=== PATIENT | female | born 1945 | race Caucasian/White ===

== ENCOUNTER → 2016-10-05 | Outpatient (CLI) | payer OTHER, MEDICARE ==
[2016-10-05 07:37] LABS: HEMATOCRIT 44.4 % (37.0-47.0); HEMOGLOBIN 15.5 g/dL (12.0-16.0); MEAN CORPUSCULAR HEMOGLOBIN 31.7 PG (27-31); MEAN CORPUSCULAR HGB CONC 34.9 g/dL (33-37); MEAN CORPUSCULAR VOLUME 90.8 FL (81-99); MEAN PLATELET VOLUME 8.2 FL (7.4-12.2); RED BLOOD COUNT 4.89 10^6/uL (4.20-5.40)
[2016-10-05 07:46] LABS: CALCIUM 9.4 mg/dL (8.7-10.7); CHOL/HDL RATIO 1.96 RATIO (0-4.0)
== END ==
LOC: LAB 07:23
PROVIDERS: ATTEND Obstetrics & Gynecology Gynecology
DX: J44.9 Chronic obstructive pulmonary disease, unspecified (principal); I10 Essential (primary) hypertension; E78.5 Hyperlipidemia, unspecified
CPT/HCPCS: 36415; 80053; 80061; 82607; 84443; 85027